=== PATIENT | female | born 1970 | race American Indian/Alaskan Native ===

== ENCOUNTER → 2016-04-16 19:13 | Outpatient (CLI) | payer OTHER ==
[~2016-04-16 19:13] MED LIST: ONDA2INJ2 PO; OXYC5TAB53 PO; PAXIL10 MG PO
== END | disposition short-term general hospital (02) ==
LOC: AMB 19:13
DX: R11.2 Nausea with vomiting, unspecified (principal); R19.7 Diarrhea, unspecified
CPT/HCPCS: A0425; A0427

== ENCOUNTER 2016-04-16 19:21 | Emergency (ER) | payer OTHER ==
[~2016-04-16] VITALS: Ht 160 cm; Wt 84.8 kg
[2016-04-16] MEDS ORDERED: PAXIL10 MG PO (19:30)
[2016-04-16 20:15] LABS: PLATELET COUNT 319 K/uL (152-353)
[2016-04-16 20:30] LABS: POTASSIUM 3.5 mmol/L (3.6-5.2); SODIUM 138 mmol/L (136-145)
[2016-04-16] MEDS ORDERED: ONDA2INJ2 PO (21:56)
[2016-04-16] MEDS ORDERED: OXYC5TAB53 PO (21:56)
[2016-04-16 21:57] VITALS: BP 127/83; TEMP 97.6
== END 2016-04-16 22:12 | disposition home or self-care (01) ==
LOC: ED 19:21
PROVIDERS: Emergency Medicine
DX: R11.2 Nausea with vomiting, unspecified (principal); R19.7 Diarrhea, unspecified
CPT/HCPCS: 36415; 80053; 81000; 83690; 85027; 96361; 96374; 96375; 99284; J2270; J2405; J2550; J3490; Q9963

== ENCOUNTER 2017-03-11 10:33 | Emergency (ER) | payer OTHER ==
[~2017-03-11] VITALS: Ht 154.9 cm; Wt 84.4 kg
[2017-03-11 10:40] VITALS: TEMP 98
[2017-03-11 11:33] VITALS: BP 138/87
== END 2017-03-11 11:36 | disposition home or self-care (01) ==
LOC: ED 10:33
DX: M70.61 Trochanteric bursitis, right hip (principal); X50.1XXA Overexertion from prolonged static or awkward postures, initial encounter; Y93.89 Activity, other specified; Y92.098 Other place in other non-institutional residence as the place of occurrence of the external cause
CPT/HCPCS: 96372; 99283; J1885; J2360

== ENCOUNTER 2017-04-21 11:46 | Outpatient (CLI) | payer OTHER ==
[2017-04-21 12:17] LABS: PLATELET COUNT 353 K/uL (152-353)
== END 2017-04-21 20:08 | disposition home or self-care (01) ==
LOC: LABW 11:46
PROVIDERS: Nurse Practitioner Family
DX: D64.89 Other specified anemias (principal); E11.9 Type 2 diabetes mellitus without complications; R53.83 Other fatigue; Z79.899 Other long term (current) drug therapy; Z51.81 Encounter for therapeutic drug level monitoring; E78.4 Other hyperlipidemia
CPT/HCPCS: 36415; 80053; 83036; 85027

== ENCOUNTER 2017-06-04 22:23 | Outpatient (CLI) | payer OTHER | END 2017-06-04 22:27 | disposition short-term general hospital (02) | LOC: AMB 22:23 | DX: R45.851 Suicidal ideations (principal) | CPT/HCPCS: A0425; A0427 ==

== ENCOUNTER 2017-06-04 22:32 | Emergency (ER) | payer OTHER ==
[~2017-06-04] VITALS: Ht 154.9 cm; Wt 81.6 kg
[2017-06-04 23:07] LABS: PLATELET COUNT 354 K/uL (152-353)
[2017-06-04 23:22] LABS: POTASSIUM 3.5 mmol/L (3.6-5.2)
[2017-06-05 02:49] VITALS: BP 13/91; TEMP 98.4
== END 2017-06-05 02:50 | disposition home or self-care (01) ==
LOC: ED 22:32
DX: R45.851 Suicidal ideations (principal); R00.1 Bradycardia, unspecified
CPT/HCPCS: 36415; 80053; 80307; 80329; 81000; 85027; 93005; 99285

== ENCOUNTER 2017-07-02 02:52 | Emergency (ER) | payer OTHER ==
[~2017-07-02] VITALS: Ht 154.9 cm; Wt 84.4 kg
[2017-07-02 03:04] VITALS: TEMP 98
[2017-07-02] MEDS ORDERED: METF100038 PO (03:09)
[2017-07-02] MEDS ORDERED: PRINIVIL10 MG PO (03:10)
[2017-07-02] MEDS ORDERED: ESTR1.254 PO (03:14)
[2017-07-02 03:34] LABS: PLATELET COUNT 350 K/uL (152-353)
[2017-07-02 03:43] LABS: POTASSIUM 3.5 mmol/L (3.6-5.2)
[2017-07-02 04:19] VITALS: BP 139/80
== END 2017-07-02 04:22 | disposition home or self-care (01) ==
LOC: ED 02:52
DX: K21.9 Gastro-esophageal reflux disease without esophagitis (principal)
CPT/HCPCS: 36415; 80053; 81000; 82150; 83690; 85027; 96372; 99283; J1885; J2405

== ENCOUNTER 2017-09-02 20:05 | Emergency (ER) | payer OTHER ==
[~2017-09-02] VITALS: Ht 154.9 cm; Wt 81.6 kg
[~2017-09-02 20:05] MED LIST changes: +ESTR1.254 PO; +METF100038 PO; +PRINIVIL10 MG PO
[2017-09-02 20:10] VITALS: TEMP 97.5
[2017-09-02 22:34] VITALS: BP 130/86
== END 2017-09-02 22:34 | disposition home or self-care (01) ==
LOC: ED 20:05
DX: R07.0 Pain in throat (principal); R13.19 Other dysphagia
CPT/HCPCS: 99283

== ENCOUNTER 2017-09-06 09:21 | Outpatient (CLI) | payer OTHER ==
[2017-09-06 10:17] LABS: PLATELET COUNT 342 K/uL (152-353)
[2017-09-06 11:07] LABS: POTASSIUM 3.8 mmol/L (3.6-5.2)
== END 2017-09-06 19:37 | disposition home or self-care (01) ==
LOC: LABW 09:21
PROVIDERS: Nurse Practitioner Family
DX: E11.9 Type 2 diabetes mellitus without complications (principal); E66.8 Other obesity; E78.4 Other hyperlipidemia; D50.8 Other iron deficiency anemias; Z79.899 Other long term (current) drug therapy; Z51.81 Encounter for therapeutic drug level monitoring
CPT/HCPCS: 36415; 80053; 80061; 82043; 82570; 83036; 84443; 85027

== ENCOUNTER 2017-11-21 10:50 | Outpatient (CLI) | payer OTHER ==
[2017-11-21 15:08] LABS: PLATELET COUNT 367 K/uL (152-353)
[2017-11-21 15:28] LABS: POTASSIUM 3.8 mmol/L (3.6-5.2)
== END 2017-11-21 19:06 | disposition home or self-care (01) ==
LOC: LABW 10:50
PROVIDERS: Nurse Practitioner Family
DX: R53.83 Other fatigue (principal); E11.9 Type 2 diabetes mellitus without complications; R63.5 Abnormal weight gain; Z68.34 Body mass index [BMI] 34.0-34.9, adult; I10 Essential (primary) hypertension; Z79.899 Other long term (current) drug therapy
CPT/HCPCS: 36415; 80053; 80061; 82043; 82570; 83036; 84443; 85027

== ENCOUNTER 2017-12-03 09:48 | Outpatient (CLI) | payer OTHER | END 2017-12-03 18:51 | disposition home or self-care (01) | LOC: MAMMO 09:48 | DX: Z12.31 Encounter for screening mammogram for malignant neoplasm of breast (principal) ==

== ENCOUNTER 2017-12-08 17:42 | Outpatient (CLI) | payer OTHER | END 2017-12-08 17:45 | disposition short-term general hospital (02) | LOC: AMB 17:42 | DX: R11.2 Nausea with vomiting, unspecified (principal) | CPT/HCPCS: A0425; A0429 ==

== ENCOUNTER 2017-12-08 17:47 | Emergency (ER) | payer OTHER ==
[~2017-12-08] VITALS: Ht 154.9 cm; Wt 84.4 kg
[2017-12-08 17:47] VITALS: TEMP 97.9
[2017-12-08 19:12] LABS: PLATELET COUNT 326 K/uL (152-353)
[2017-12-08 19:20] LABS: POTASSIUM 3.9 mmol/L (3.6-5.2)
[2017-12-08 21:31] VITALS: BP 133/72
== END 2017-12-08 21:31 | disposition home or self-care (01) ==
LOC: ED 17:47
DX: R11.2 Nausea with vomiting, unspecified (principal); R04.0 Epistaxis
CPT/HCPCS: 36415; 80053; 81000; 85027; 96360; 99284

== ENCOUNTER 2018-04-07 10:03 | Outpatient (CLI) | payer OTHER ==
[2018-04-07 10:38] LABS: PLATELET COUNT 331 K/uL (152-353)
== END 2018-04-07 19:17 | disposition home or self-care (01) ==
LOC: LABW 10:03
PROVIDERS: Nurse Practitioner Family
DX: E78.5 Hyperlipidemia, unspecified (principal); E11.9 Type 2 diabetes mellitus without complications; M54.5 Low back pain; Z79.899 Other long term (current) drug therapy
CPT/HCPCS: 36415; 80053; 80061; 81000; 82043; 82570; 83036; 84443; 85027

== ENCOUNTER 2018-09-05 07:38 | Emergency (ER) | payer OTHER ==
[~2018-09-05] VITALS: Ht 154.9 cm; Wt 64.0 kg
[~2018-09-05 07:38] MED LIST changes: +AMIT10TA21 PO; +ESCITALOPRAM10 MG PO; +ESTR0.6211 PO; +HYDR10TA47A PO; +LISITAB PO; +METFTAB PO; +PANTOPRAZOLE 40MG TA PO; +ROBAXIN-750750 MG PO; +SIMV10TA PO; +[UNRECOGNIZED DRUG - OTHER]
[2018-09-05 08:19] LABS: PLATELET COUNT 318 K/uL (152-353)
[2018-09-05 08:34] LABS: POTASSIUM 3.6 mmol/L (3.6-5.2)
[2018-09-05 08:53] VITALS: BP 143/75
== END 2018-09-05 08:57 | disposition home or self-care (01) ==
LOC: ED 07:38
PROVIDERS: Family Medicine
DX: R10.84 Generalized abdominal pain (principal); R19.7 Diarrhea, unspecified; K29.60 Other gastritis without bleeding
CPT/HCPCS: 36415; 80053; 81000; 82150; 83690; 85027; 99283; 99284

== ENCOUNTER 2018-10-19 06:01 | Emergency (ER) | payer OTHER ==
[~2018-10-19] VITALS: Ht 157.5 cm; Wt 68.0 kg
[2018-10-19 06:41] LABS: PLATELET COUNT 297 K/uL (152-353)
[2018-10-19 06:54] LABS: POTASSIUM 3.3 mmol/L (3.6-5.2)
[2018-10-19 07:01] LABS: PARTIAL THROMBOPLASTIN TIME 27.6 SECONDS (24.5-33.6)
[2018-10-19 09:25] VITALS: BP 128/74; TEMP 97.6
== END 2018-10-19 09:25 | disposition home or self-care (01) ==
LOC: ED 06:01
PROVIDERS: Hospitalist
DX: R10.13 Epigastric pain (principal); R19.7 Diarrhea, unspecified
CPT/HCPCS: 36415; 80053; 81000; 82150; 83605; 83690; 85027; 85610; 85730; 96360; 96375; 96376; 99284; J1885; J2405; Q9963

== ENCOUNTER 2018-10-20 13:04 | Outpatient (CLI) | payer OTHER | END 2018-10-20 23:59 | disposition home or self-care (01) | LOC: LABW 13:04 | DX: E11.9 Type 2 diabetes mellitus without complications (principal) | CPT/HCPCS: 83036 ==

== ENCOUNTER 2018-11-22 03:11 | Emergency (ER) | payer OTHER ==
[~2018-11-22] VITALS: Ht 160 cm; Wt 64.9 kg
[2018-11-22 03:20] VITALS: TEMP 97.3
[2018-11-22 03:46] LABS: PLATELET COUNT 301 K/uL (152-353)
[2018-11-22 05:13] VITALS: BP 118/74
== END 2018-11-22 05:25 | disposition home or self-care (01) ==
LOC: ED 03:11
PROVIDERS: Student in an Organized Health Care Education/Training Program
DX: R11.2 Nausea with vomiting, unspecified (principal); R19.7 Diarrhea, unspecified
CPT/HCPCS: 36415; 80053; 81000; 83690; 83735; 85027; 96360; 96365; 96375; 99284; J2405

== ENCOUNTER 2019-01-07 13:50 | Outpatient (CLI) | payer OTHER | END 2019-01-07 19:58 | disposition home or self-care (01) | LOC: MAMMO 13:50 | DX: Z12.31 Encounter for screening mammogram for malignant neoplasm of breast (principal) ==

== ENCOUNTER 2019-01-08 06:46 | Outpatient (CLI) | payer OTHER ==
[2019-01-08 07:52] LABS: POTASSIUM 4.2 mmol/L (3.6-5.2)
== END 2019-01-08 19:03 | disposition home or self-care (01) ==
LOC: LABW 06:46
PROVIDERS: Nurse Practitioner Family
DX: Z51.81 Encounter for therapeutic drug level monitoring (principal); E78.5 Hyperlipidemia, unspecified; E11.9 Type 2 diabetes mellitus without complications
CPT/HCPCS: 36415; 80053; 80061; 83036

== ENCOUNTER 2019-01-09 22:49 | Emergency (ER) | payer OTHER ==
[~2019-01-09] VITALS: Ht 160 cm; Wt 64.9 kg
[2019-01-09 23:50] VITALS: BP 108/67; TEMP 97.7
== END 2019-01-09 23:50 | disposition home or self-care (01) ==
LOC: ED 22:49
DX: J06.9 Acute upper respiratory infection, unspecified (principal)
CPT/HCPCS: 87502; 87651; 99283

== ENCOUNTER 2019-01-21 22:49 | Emergency (ER) | payer OTHER ==
[~2019-01-21] VITALS: Ht 160 cm; Wt 64.9 kg
[2019-01-22 00:32] VITALS: BP 142/91; TEMP 99.1
== END 2019-01-22 00:30 | disposition home or self-care (01) ==
LOC: ED 22:49
DX: J06.9 Acute upper respiratory infection, unspecified (principal)
CPT/HCPCS: 87502; 87651; 99283

== ENCOUNTER 2019-06-29 16:27 | Emergency (ER) | payer OTHER ==
[~2019-06-29] VITALS: Ht 160 cm; Wt 68.0 kg
[2019-06-29 17:43] LABS: PLATELET COUNT 254 K/uL (152-353)
[2019-06-29 17:51] LABS: POTASSIUM 4.1 mmol/L (3.6-5.2)
[2019-06-29 20:45] VITALS: BP 130/70; TEMP 98.6
== END 2019-06-29 20:45 | disposition home or self-care (01) ==
LOC: ED 16:27
PROVIDERS: Family Medicine
DX: J06.9 Acute upper respiratory infection, unspecified (principal); Z03.818 Encounter for observation for suspected exposure to other biological agents ruled out; R50.9 Fever, unspecified
CPT/HCPCS: 36415; 80053; 85027; 87502; 87635; 87651; 96374; 99284; J2405; U0002

== ENCOUNTER 2019-07-19 12:12 | Outpatient (CLI) | payer OTHER ==
[2019-07-19 13:10] LABS: PLATELET COUNT 309 K/uL (152-353)
[2019-07-19 13:24] LABS: POTASSIUM 4.1 mmol/L (3.6-5.2)
== END 2019-07-19 20:46 | disposition home or self-care (01) ==
LOC: LABW 12:12
PROVIDERS: Nurse Practitioner Family
DX: D64.9 Anemia, unspecified (principal); E11.9 Type 2 diabetes mellitus without complications; R53.83 Other fatigue; Z51.81 Encounter for therapeutic drug level monitoring
CPT/HCPCS: 36415; 80053; 83036; 84443; 85027

== ENCOUNTER 2019-08-07 08:17 | Emergency (ER) | payer OTHER ==
[~2019-08-07] VITALS: Ht 160 cm; Wt 66.7 kg
[2019-08-07 08:25] VITALS: TEMP 98.1
[2019-08-07 09:26] LABS: PLATELET COUNT 286 K/uL (152-353)
[2019-08-07 14:30] VITALS: BP 121/66
== END 2019-08-07 14:43 | disposition home or self-care (01) ==
LOC: ED 08:17
PROVIDERS: Emergency Medicine
DX: F32.89 Other specified depressive episodes (principal)
CPT/HCPCS: 80053; 80307; 80320; 80329; 81000; 85027; 93005; 99285

== ENCOUNTER 2019-11-03 17:57 | Emergency (ER) | payer OTHER | END 2019-11-03 18:36 | disposition home or self-care (01) | LOC: ED 17:57 | DX: Z11.59 Encounter for screening for other viral diseases (principal) | CPT/HCPCS: 99281 ==

== ENCOUNTER 2019-12-12 07:30 | Emergency (ER) | payer OTHER ==
[~2019-12-12] VITALS: Ht 160 cm; Wt 66.2 kg
[2019-12-12 07:42] VITALS: TEMP 98.1
[2019-12-12 08:56] VITALS: BP 138/78
== END 2019-12-12 08:56 | disposition home or self-care (01) ==
LOC: ED 07:30
DX: R11.2 Nausea with vomiting, unspecified (principal); R19.7 Diarrhea, unspecified; W18.2XXA Fall in (into) shower or empty bathtub, initial encounter; Y92.89 Other specified places as the place of occurrence of the external cause
CPT/HCPCS: 99282; 99283

== ENCOUNTER 2019-12-21 14:15 | Outpatient (CLI) | payer OTHER | END 2019-12-21 20:26 | disposition home or self-care (01) | LOC: LABW 14:15 | DX: E11.9 Type 2 diabetes mellitus without complications (principal) | CPT/HCPCS: 36415; 83036 ==

== ENCOUNTER 2019-12-26 22:57 | Emergency (ER) | payer OTHER ==
[~2019-12-26] VITALS: Ht 160 cm; Wt 84.4 kg
[2019-12-26 23:46] LABS: PLATELET COUNT 315 K/uL (152-353)
[2019-12-27 00:02] LABS: POTASSIUM 4.1 mmol/L (3.6-5.2)
[2019-12-27 00:35] VITALS: BP 123/65; TEMP 98
== END 2019-12-27 00:35 | disposition home or self-care (01) ==
LOC: ED 22:57
PROVIDERS: Hospitalist
DX: R10.84 Generalized abdominal pain (principal); K59.09 Other constipation
CPT/HCPCS: 36415; 80053; 81000; 81025; 82150; 83690; 85027; 96360; 96375; 99284; J1885; J2405

== ENCOUNTER 2020-01-13 15:07 | Outpatient (CLI) | payer OTHER | END 2020-01-13 19:08 | disposition home or self-care (01) | LOC: MAMMO 15:07 | PROVIDERS: ATTEND Nurse Practitioner Family | DX: Z12.31 Encounter for screening mammogram for malignant neoplasm of breast (principal) ==

== ENCOUNTER 2020-02-24 22:29 | Emergency (ER) | payer OTHER ==
[~2020-02-24] VITALS: Ht 160 cm; Wt 63.5 kg
[2020-02-25 00:25] VITALS: BP 139/85; TEMP 98.2
== END 2020-02-25 00:27 | disposition home or self-care (01) ==
LOC: ED 22:29
DX: R10.31 Right lower quadrant pain (principal); K59.09 Other constipation
CPT/HCPCS: 81000; 99283

== ENCOUNTER 2020-04-20 17:03 | Outpatient (CLI) | payer OTHER ==
[2020-04-20 17:23] LABS: PLATELET COUNT 289 K/uL (152-353)
[2020-04-20 17:38] LABS: POTASSIUM 3.8 mmol/L (3.6-5.2)
== END 2020-04-20 20:14 | disposition home or self-care (01) ==
LOC: LABW 17:03
PROVIDERS: ATTEND Nurse Practitioner Family
DX: Z00.00 Encounter for general adult medical examination without abnormal findings (principal); Z79.899 Other long term (current) drug therapy; R53.83 Other fatigue; E11.9 Type 2 diabetes mellitus without complications; I10 Essential (primary) hypertension; E78.00 Pure hypercholesterolemia, unspecified
CPT/HCPCS: 36415; 80053; 80061; 83036; 84443; 85027

== ENCOUNTER 2020-07-17 18:52 | Emergency (ER) | payer OTHER ==
[~2020-07-17] VITALS: Ht 160 cm; Wt 78.9 kg
[2020-07-17] MEDS ORDERED: HYDR10TA51 PO (19:20)
[2020-07-17 19:43] LABS: PLATELET COUNT 295 K/uL (152-353)
[2020-07-17 20:08] LABS: POTASSIUM 3.7 mmol/L (3.6-5.2); SODIUM 142 mmol/L (136-145)
[2020-07-17 21:30] VITALS: BP 136/66; TEMP 97.5
== END 2020-07-17 21:30 | disposition home or self-care (01) ==
LOC: ED 18:52
PROVIDERS: Emergency Medicine
DX: R11.2 Nausea with vomiting, unspecified (principal); R10.13 Epigastric pain; K21.9 Gastro-esophageal reflux disease without esophagitis; K29.60 Other gastritis without bleeding; R07.89 Other chest pain
CPT/HCPCS: 36415; 80053; 81000; 82550; 82553; 83690; 83880; 84484; 85027; 87086; 87088; 93005; 96360; 96365; 96375; 99284; J2405

== ENCOUNTER 2020-09-21 17:41 | Outpatient (CLI) | payer OTHER ==
[~2020-09-21 17:41] MED LIST changes: +HYDR10TA51 PO
== END 2020-09-21 22:09 | disposition home or self-care (01) ==
LOC: LABW 17:41
PROVIDERS: ATTEND Nurse Practitioner Family
DX: R31.9 Hematuria, unspecified (principal); R30.0 Dysuria
CPT/HCPCS: 87088

== ENCOUNTER 2020-10-07 07:25 | Emergency (ER) | payer OTHER ==
[~2020-10-07] VITALS: Ht 160 cm; Wt 78.9 kg
[2020-10-07 08:29] LABS: PLATELET COUNT 274 K/uL (152-353)
[2020-10-07 08:33] LABS: POTASSIUM 3.9 mmol/L (3.6-5.2)
[2020-10-07 11:00] VITALS: BP 117/72; TEMP 98
== END 2020-10-07 11:00 | disposition still patient (30) ==
LOC: ED 07:25
PROVIDERS: Emergency Medicine
DX: R10.32 Left lower quadrant pain (principal); R10.31 Right lower quadrant pain
CPT/HCPCS: 36415; 80053; 80307; 81000; 82150; 83690; 85027; 96374; 96375; 99284; J1885; J2405; Q9963

== ENCOUNTER 2021-01-11 11:43 | Outpatient (CLI) | payer OTHER | END 2021-01-11 19:19 | disposition home or self-care (01) | LOC: LABW 11:43 | PROVIDERS: ATTEND Nurse Practitioner Family | DX: R73.9 Hyperglycemia, unspecified (principal); R53.83 Other fatigue | CPT/HCPCS: 83036 ==

== ENCOUNTER 2021-01-16 10:20 | Outpatient (CLI) | payer OTHER | END 2021-01-16 18:57 | disposition home or self-care (01) | LOC: MAMMO 10:20 | PROVIDERS: ATTEND Nurse Practitioner Family | DX: Z12.31 Encounter for screening mammogram for malignant neoplasm of breast (principal) ==

== ENCOUNTER 2021-01-18 19:47 | Emergency (ER) | payer OTHER ==
[~2021-01-18] VITALS: Ht 160 cm; Wt 81.6 kg
[2021-01-18 20:22] LABS: PLATELET COUNT 248 K/uL (152-353)
[2021-01-18 20:27] LABS: POTASSIUM 3.6 mmol/L (3.6-5.2); SODIUM 142 mmol/L (136-145)
[2021-01-18 21:00] VITALS: BP 156/86; TEMP 98.4
== END 2021-01-18 21:00 | disposition home or self-care (01) ==
LOC: ED 19:47
PROVIDERS: Emergency Medicine
DX: K21.9 Gastro-esophageal reflux disease without esophagitis (principal); R12 Heartburn; F41.8 Other specified anxiety disorders
CPT/HCPCS: 80048; 84484; 85027; 93005; 96374; 99284; J3490

== ENCOUNTER 2021-04-13 10:41 | Outpatient (CLI) | payer OTHER ==
[2021-04-13 10:55] LABS: PLATELET COUNT 314 K/uL (152-353)
[2021-04-13 11:15] LABS: POTASSIUM 4.4 mmol/L (3.6-5.2)
== END 2021-04-13 20:03 | disposition home or self-care (01) ==
LOC: LABW 10:41
PROVIDERS: ATTEND Nurse Practitioner Family
DX: Z00.00 Encounter for general adult medical examination without abnormal findings (principal); Z79.899 Other long term (current) drug therapy; R73.01 Impaired fasting glucose; R53.83 Other fatigue; R53.1 Weakness
CPT/HCPCS: 36415; 80053; 80061; 83036; 84443; 85027

== ENCOUNTER 2021-06-12 17:17 | Emergency (ER) | payer OTHER ==
[~2021-06-12] VITALS: Ht 160 cm; Wt 81.6 kg
[2021-06-12 17:56] LABS: PLATELET COUNT 310 K/uL (152-353)
[2021-06-12 18:05] LABS: POTASSIUM 4.1 mmol/L (3.6-5.2)
[2021-06-12 18:21] LABS: PARTIAL THROMBOPLASTIN TIME 25.6 SECONDS (24.5-33.6)
[2021-06-12 18:57] VITALS: BP 143/70; TEMP 98
== END 2021-06-12 18:57 | disposition home or self-care (01) ==
LOC: ED 17:17
PROVIDERS: Emergency Medicine
DX: K21.9 Gastro-esophageal reflux disease without esophagitis (principal); F41.8 Other specified anxiety disorders
CPT/HCPCS: 80053; 84484; 85027; 85610; 85730; 93005; 99283

== ENCOUNTER 2021-07-11 10:45 | Outpatient (CLI) | payer OTHER | END 2021-07-11 19:17 | disposition home or self-care (01) | LOC: LABW 10:45 | PROVIDERS: ATTEND Nurse Practitioner Family | DX: R73.01 Impaired fasting glucose (principal) | CPT/HCPCS: 36415; 83036 ==

== ENCOUNTER 2021-08-09 05:28 | Emergency (ER) | payer OTHER ==
[~2021-08-09] VITALS: Ht 160 cm; Wt 83.9 kg
[2021-08-09 06:16] VITALS: BP 109/68; TEMP 98.2
== END 2021-08-09 06:16 | disposition home or self-care (01) ==
LOC: ED 05:28
DX: F41.8 Other specified anxiety disorders (principal)
CPT/HCPCS: 93005; 99282

== ENCOUNTER 2021-09-07 19:09 | Emergency (ER) | payer OTHER ==
[~2021-09-07] VITALS: Ht 160 cm; Wt 85.3 kg
[2021-09-07 20:13] LABS: PLATELET COUNT 283 K/uL (152-353)
[2021-09-07 20:14] LABS: POTASSIUM 3.5 mmol/L (3.6-5.2)
[2021-09-07 20:19] LABS: PARTIAL THROMBOPLASTIN TIME 26.8 SECONDS (24.5-33.6)
[2021-09-07 20:58] VITALS: BP 142/72; TEMP 97.9
== END 2021-09-07 20:58 | disposition home or self-care (01) ==
LOC: ED 19:09
PROVIDERS: Hospitalist
DX: R25.2 Cramp and spasm (principal); E87.6 Hypokalemia; M79.605 Pain in left leg; M79.604 Pain in right leg
CPT/HCPCS: 36415; 80053; 85027; 85379; 85610; 85730; 96372; 99283; J1650

== ENCOUNTER 2021-10-15 19:01 | Emergency (ER) | payer OTHER ==
[~2021-10-15] VITALS: Ht 160 cm; Wt 85.3 kg
[2021-10-15 19:08] VITALS: BP 133/78; TEMP 98.1
== END 2021-10-15 21:26 | disposition home or self-care (01) ==
LOC: ED 19:01
DX: N76.0 Acute vaginitis (principal); Z20.2 Contact with and (suspected) exposure to infections with a predominantly sexual mode of transmission
CPT/HCPCS: 81002; 87490; 87590; 96372; 99283; J0696

== ENCOUNTER 2021-11-18 19:46 | Emergency (ER) | payer OTHER ==
[~2021-11-18] VITALS: Ht 160 cm; Wt 83.5 kg
[2021-11-18 21:03] LABS: PLATELET COUNT 295 K/uL (152-353)
[2021-11-18 21:29] LABS: POTASSIUM 3.8 mmol/L (3.6-5.2)
[2021-11-18 23:58] VITALS: BP 140/73; TEMP 98.2
== END 2021-11-18 23:58 | disposition home or self-care (01) ==
LOC: ED 19:46
PROVIDERS: Emergency Medicine
DX: R10.84 Generalized abdominal pain (principal)
CPT/HCPCS: 36415; 80053; 81002; 83690; 84484; 85027; 93005; 96360; 96374; 96375; 96376; 99284; J2270; J2405; Q9963

== ENCOUNTER 2022-01-23 08:25 | Outpatient (CLI) | payer OTHER | END 2022-01-23 19:34 | disposition home or self-care (01) | LOC: MAMMO 08:25 | PROVIDERS: ATTEND Nurse Practitioner Family | DX: Z12.31 Encounter for screening mammogram for malignant neoplasm of breast (principal) ==

== ENCOUNTER 2022-03-28 09:29 | Outpatient (CLI) | payer OTHER ==
[2022-03-28 10:05] LABS: POTASSIUM 4.3 mmol/L (3.6-5.2)
[2022-03-28 10:28] LABS: PLATELET COUNT 295 K/uL (152-353)
== END 2022-03-28 21:45 | disposition home or self-care (01) ==
LOC: LABW 09:29
PROVIDERS: ATTEND Nurse Practitioner Family
DX: Z00.00 Encounter for general adult medical examination without abnormal findings (principal); E11.9 Type 2 diabetes mellitus without complications; E78.49 Other hyperlipidemia; Z79.899 Other long term (current) drug therapy
CPT/HCPCS: 36415; 80053; 80061; 83036; 84443; 85027

== ENCOUNTER 2022-04-25 16:10 | Outpatient (CLI) | payer OTHER | END 2022-04-25 19:23 | disposition home or self-care (01) | LOC: RAD 16:10 | PROVIDERS: ATTEND Internal Medicine | DX: M54.59 Other low back pain (principal); M47.16 Other spondylosis with myelopathy, lumbar region; M47.26 Other spondylosis with radiculopathy, lumbar region ==

== ENCOUNTER 2022-04-25 16:41 | Emergency (ER) | payer OTHER ==
[~2022-04-25] VITALS: Ht 160 cm; Wt 78.0 kg
[2022-04-25 16:45] VITALS: BP 143/83; TEMP 98.6
== END 2022-04-25 18:08 | disposition home or self-care (01) ==
LOC: ED 16:41
DX: M54.59 Other low back pain (principal)
CPT/HCPCS: 81002; 96372; 99283; J1885; J2360

== ENCOUNTER 2022-08-29 09:27 | Emergency (ER) | payer OTHER ==
[~2022-08-29] VITALS: Ht 160 cm; Wt 68.0 kg
[2022-08-29 09:42] VITALS: BP 150/70; TEMP 97.9
[2022-08-29 11:28] LABS: PLATELET COUNT 276 K/uL (152-353)
[2022-08-29 11:39] LABS: POTASSIUM 4.1 mmol/L (3.6-5.2)
== END 2022-08-29 13:02 | disposition home or self-care (01) ==
LOC: ED 09:27
PROVIDERS: Family Medicine
DX: R25.2 Cramp and spasm (principal)
CPT/HCPCS: 80053; 83735; 85027; 96372; 99283; J1885